=== PATIENT | female | born 1970 | race Two or more races ===

== ENCOUNTER → 2021-04-14 | Emergency (ER) | payer OTHER ==
[~2021-04-14] VITALS: Ht 167.6 cm; Wt 86.2 kg
[~2021-04-14] MED LIST: LAMICTAL100 M1 PO; OSEL75CA PO; [UNRECOGNIZED DRUG - OTHER]
== END | disposition home or self-care (01) ==
LOC: ER 10:31
DX: B34.9 Viral infection, unspecified (principal)

== ENCOUNTER 2021-04-20 09:00 | Outpatient (CLI) | payer OTHER | END 2021-04-20 11:15 | disposition home or self-care (01) | LOC: ASH CLINIC 09:00 | PROVIDERS: ATTEND General Practice | DX: Z23 Encounter for immunization (principal); U07.1 COVID-19 ==

== ENCOUNTER 2021-07-23 08:05 | Outpatient (CLI) | payer OTHER | END 2021-07-23 08:09 | disposition home or self-care (01) | LOC: PPH VACUNA 08:05 | PROVIDERS: ATTEND Emergency Medicine Pediatric Emergency Medicine | DX: Z23 Encounter for immunization (principal) ==